=== PATIENT | male | born 1955 | race African-American/Black ===

== ENCOUNTER 2018-06-04 05:12 | Emergency (ER) | payer OTHER, BC ==
[~2018-06-04] VITALS: Ht 190.5 cm; Wt 84.4 kg
[~2018-06-04 05:12] MED LIST: LOTREL 5-40 MG1 EACH PO; MELOXICAM7.5 MG PO
[2018-06-04] MEDS ORDERED: NAPROSYN500 MG PO (06:56)
[2018-06-04] MEDS ORDERED: FLEXERIL10 MG PO (06:56)
[2018-06-04 07:40] VITALS: BP 156/98
== END 2018-06-04 07:43 | disposition home or self-care (01) ==
LOC: EME 05:12
DX: S16.1XXA Strain of muscle, fascia and tendon at neck level, initial encounter (principal); R42 Dizziness and giddiness; V49.40XA Driver injured in collision with unspecified motor vehicles in traffic accident, initial encounter; Y92.410 Unspecified street and highway as the place of occurrence of the external cause; I10 Essential (primary) hypertension; F17.200 Nicotine dependence, unspecified, uncomplicated
CPT/HCPCS: 70450; 72125; 82948; 99281; 99284